=== PATIENT | male | born 1990 | race African-American/Black ===

== ENCOUNTER 2018-04-22 16:00 | Emergency (ER) | payer SELFPAY ==
[2018-04-22] VITALS (32 sets, daily range): BP systolic 106–157; BP diastolic 52–91
[~2018-04-22] VITALS: Ht 188 cm; Wt 90.7 kg
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
[2018-04-22] MEDS ORDERED: Haloperidol 5mg/ml Inj IM ONE (16:30)
[2018-04-22] MEDS ORDERED: DiphenhydrAMINE 50mg/ml Inj IM ONE (16:30)
[2018-04-22] MEDS ORDERED: LORazepam Inj 2mg/ml 1ml IM ONE (16:30)
[2018-04-22 17:06] LABS: BASOPHILS % (AUTO) 1.1 % (0.0-2.0); EOSINOPHILS % (AUTO) 1.4 % (0.0-3.0); HEMATOCRIT 38.9 % (42.0-52.0); HEMOGLOBIN 13.1 G/DL (14.2-18.0); LYMPHOCYTES % (AUTO) 18.2 % (20.0-45.0); MEAN CORPUSCULAR VOLUME 92 FL (80-99); MONOCYTES % (AUTO) 8.9 % (1.0-10.0); NEUTROPHILS % (AUTO) 70.4 % (45.0-75.0); PLATELET COUNT 183 K/UL (150-450); RED BLOOD COUNT 4.25 M/UL (4.70-6.10); RED CELL DISTRIBUTION WIDTH 11.5 % (11.6-14.8); WHITE BLOOD COUNT 8.7 K/UL (4.8-10.8)
[2018-04-22 17:11] LABS: ANION GAP 8 mmol/L (5-15); BLOOD UREA NITROGEN 11 mg/dL (7-18); CALCIUM 8.9 MG/DL (8.5-10.1); CARBON DIOXIDE 28 MMOL/L (21-32); CHLORIDE 106 MMOL/L (98-107); POTASSIUM 3.5 MMOL/L (3.5-5.1); SODIUM 141 MMOL/L (136-145)
[2018-04-22 17:21] LABS: ALANINE AMINOTRANSFERASE 24 U/L (12-78); ALBUMIN 3.9 G/DL (3.4-5.0); ALBUMIN/GLOBULIN RATIO 1.2 (1.0-2.7); ALKALINE PHOSPHATASE 70 U/L (46-116); ASPARTATE AMINO TRANSFERASE 27 U/L (15-37); BILIRUBIN,TOTAL 0.6 MG/DL (0.2-1.0)
[2018-04-23] VITALS (12 sets, daily range): BP systolic 116–134; BP diastolic 60–78
[2018-04-23] MEDS ORDERED: Bacitracin Oint UD TOPIC ONE (11:45)
== END 2018-04-23 12:05 ==
LOC: EDBD 16:00 → EMR 16:36
DX: R45.1 Restlessness and agitation (principal); F29 Unspecified psychosis not due to a substance or known physiological condition
CPT/HCPCS: 36415; 80053; 80307; 85025; 96372; 99291; G0480; J1200; J1630; 80329